=== PATIENT | female | born 1990 | race African-American/Black ===

== ENCOUNTER 2019-06-28 06:19 | Emergency (ER) | payer MEDICAID ==
[~2019-06-28] VITALS: Ht 175.3 cm; Wt 65.8 kg
[~2019-06-28 06:19] MED LIST: CYCLOBENZAPRINE10 MG ORAL; IBUPROFEN600 MG ORAL; PHENAZOPYRIDIN200 MG ORAL
--- NOTE | 2019-06-28 06:31 | NUR ---
ED Nurse Note: pt presents to ED c/o cough, congestion, fever/chills and gernalized body aches that started last PM. pt states that she has been in contact with someone who is positive for influenza but unsure typa A or B. pt reports taking tylenol [employer] without relief of symptoms. she denies getting a flu immunization this year. upon auscultation, pt's lung sound clear
[2019-06-28 06:33] VITALS: BP 100/67
--- NOTE | 2019-06-28 06:48 | Emergency Room Report ---
History of Present Illness General Chief Complaint: Flu Like Symptoms Source: Patient Present Illness HPI 29-year-old female who presents with acute onset flulike symptoms. Patient reports congestion started last night associated with body aches and subjective fevers. Patient states that she had a friend diagnosed with influenza earlier this week. Patient has not tried any medications for symptom control. Patient has no past medical history. Allergies: Coded Allergies: No Known Allergies (Unverified , 09/18/14) Patient History Past Medical History: none Last Menstrual Period: 06/10 Now: No Nursing Documentation-[facility] Past Medical History: No Stated History Review of Systems Constitutional: Reports: fever; Denies: chills ENT: Reports: nose congestion Respiratory: Denies: cough, shortness of breath Cardiovascular: Denies: chest pain, palpitations Gastrointestinal: Denies: diarrhea, vomiting Genitourinary: Denies: hematuria, pain Musculoskeletal: Reports: other; Denies: joint swelling Skin: Denies: rash, lesions Neurological: Denies: headache, dizziness Physical Exam Vital Signs Date Time Temp Pulse Resp B/P (MAP) Pulse Ox O2 Delivery O2 Flow Rate FiO2 06/28/19 06:22 98.8 97 14 100/67 (78) 95 Room Air Sp02 EP Interpretation: reviewed General Appearance: well appearing, no apparent distress, non-toxic Head: normocephalic, atraumatic Eyes: bilateral eye normal inspection ENT: hearing grossly normal, EOM grossly intact, moist mucus membranes Neck: supple Respiratory: normal inspection, lungs clear, normal breath sounds, no rhonchi, no respiratory distress, no retraction, no accessory muscle use, no wheezing, speaking full sentences Cardiovascular #1: regular rate, rhythm, normal capillary refill Cardiovascular #2: 2+ radial (R), 2+ radial (L) Gastrointestinal: non tender, soft, no mass, non-distended Rectal: deferred Musculoskeletal: moves extm spontaneously, no lower extremity edema Neurologic: grossly normal Psychiatric: mood/affect normal Skin: warm/dry, normal turgor Medical Decision Making Diagnostic Impression: Primary Impression: Viral upper respiratory illness ER Course 29-year-old female presents with flulike symptoms found to have no wheezing, rhonchi, rales on exam. Patient afebrile at this time. Will do influenza testing as patient states she was with a friend who had positive flu. Differential includes, influenza, viral illness, pneumonia, Microbiology Date/Time Source Procedure Growth Status 06/28/19 06:36 Nasal Nares - Final Complete 06/28/19 06:36 Nasal Nares - Final Complete Lab Results Impression Negative for influenza Last Vital Signs Date Time Temp Pulse Resp B/P (MAP) Pulse Ox O2 Delivery O2 Flow Rate FiO2 06/28/19 08:00 98.7 98 18 113/73 95 Room Air Reevaluation Impression Patient found to be influenza negative. Patient recommended plenty of rest, hydration, and follow-up with primary care doctor. Discussed hand hygiene and keeping from spreading viral illness. Also discussed return precautions such as cough, fever, respiratory distress or any new symptoms. Disposition: HOME, SELF-CARE Condition: Stable Scripts Pseudoephedrine Hcl* (SUDAFED*) 60 Mg Tablet 60 MG PO Q6H for 7 Days, #30 TAB Prov: Luis F Damon M.D. 06/28/19 Referrals: [facility] Departure Forms: Return to Work Return to Work in (Days): 3 Return to Work Date: Jul 01, 2019 Patient Instructions: Upper Respiratory Infection, Adult Additional Instructions: Please follow-up with primary care doctor or clinic listed in the next 2 to 3 days for reevaluation. Return to emergency room if having any worsening symptoms or new symptoms. Luis F Damon M.D. Jun 28, 2019 06:48
--- NOTE | 2019-06-28 07:07 | NUR ---
HAND-OFF: Report given to KEITH Richards.
--- NOTE | 2019-06-28 07:08 | NUR ---
ED Nurse Note: Received patient from KEITH Candelaria. Patient is sleeping in bed comfortably breathing even and unlabored. no respiratory distress noted at this time.
[2019-06-28] MEDS ORDERED: PSEUDOEPHEDRINE60 MG PO (07:37)
[2019-06-28 08:00] VITALS: BP 113/73
--- NOTE | 2019-06-28 08:00 | NUR ---
ER DISCHARGE NOTE: Patient is cleared to be discharged per ERMJessika Damon , pt is aox4, on room air, with stable vital signs. pt was given dc and prescription instructions, pt was able to verbalize understanding, pt id band removed without complications. pt is able to ambulate with steady gait. pt took all belongings.
== END 2019-06-28 08:00 | disposition home or self-care (01) ==
LOC: EMR 06:40
DX: J06.9 Acute upper respiratory infection, unspecified (principal)
CPT/HCPCS: 86710; Z7502; 99282

== ENCOUNTER → 2019-09-30 | Emergency (ER) | payer MEDICAID ==
[~2019-09-30] VITALS: Ht 177.8 cm; Wt 72.6 kg
[~2019-09-30] MED LIST changes: +CEPHALEXIN500 MG ORAL; +ONDANSETRON ODT4 MG BC; +PSEUDOEPHEDRINE60 MG PO; +TYLENOL EXTRA500 MG ORAL
--- NOTE | 2019-09-30 14:59 | NUR ---
ED Nurse Note: Pt ambulated to ed c/o pulling like pain on lower abdomen x 3 days. pt states she is 4 months . Placed on bed, awaiting for ERPA.
--- NOTE | 2019-09-30 15:16 | Emergency Room Report ---
History of Present Illness General Chief Complaint: Abdominal Pain Source: Patient Present Illness HPI 29-year-old female presents ED for evaluation. Complaining of lower abdominal pain for the last 3 days. Dull, pulling, 3 out of 10, nonradiating. Denies spotting. States she is about 4 months based on LMP. Does not yet have care. Denies fevers or chills. Denies nausea or vomiting. No other aggravating relieving factors. Denies any other associated symptoms Allergies: Coded Allergies: No Known Allergies (Unverified , 09/18/14) Patient History Past Medical History: none Past Surgical History: none Pertinent Family History: none Social History: Denies: smoking, alcohol use, drug use Now: Yes Immunizations: UTD Reviewed Nursing Documentation: PMH: Agreed; PSxH: Agreed Nursing Documentation-PMH Past Medical History: No Stated History Review of Systems All Other Systems: negative except mentioned in HPI Physical Exam Vital Signs Date Time Temp Pulse Resp B/P (MAP) Pulse Ox O2 Delivery O2 Flow Rate FiO2 09/30/19 14:52 98.2 90 16 120/75 (90) 100 Room Air Sp02 EP Interpretation: reviewed, normal General Appearance: no apparent distress, alert, GCS 15, non-toxic Head: normocephalic, atraumatic Eyes: bilateral eye normal inspection, bilateral eye PERRL ENT: hearing grossly normal, normal pharynx, no angioedema, normal voice Neck: full range of motion, supple/symm/no masses Respiratory: chest non-tender, lungs clear, normal breath sounds, speaking full sentences Cardiovascular #1: regular rate, rhythm, no edema Cardiovascular #2: 2+ carotid (R), 2+ carotid (L), 2+ radial (R), 2+ radial (L) , 2+ dorsalis pedis (R), 2+ dorsalis pedis (L) Gastrointestinal: normal bowel sounds, non tender, soft, non-distended, no guarding, no rebound Rectal: deferred Genitourinary: normal inspection, no CVA tenderness Musculoskeletal: back normal, normal range of motion, gait/station normal, non- tender Neurologic: alert, motor strength/tone normal, oriented x3, sensory intact, responsive, speech normal Psychiatric: judgement/insight normal, memory normal, mood/affect normal, no suicidal/homicidal ideation Reflexes: 3+ bicep (R), 3+ bicep (L), 3+ tricep (R), 3+ tricep (L), 3+ knee (R) , 3+ knee (L) Lymphatic: no adenopathy Medical Decision Making Diagnostic Impression: Primary Impression: Threatened Additional Impression: UTI (urinary tract infection) Qualified Codes: N39.0 - Urinary tract infection, site not specified ER Course Hospital Course 29-year-old female presents to ED complaining of lower abdominal pain. + Differential diagnoses include: gastrits, gastroenterits, ectopic , ovarian torsion/cyst, UTI Clinical course Patient placed on stretcher in ED. After initial history and physical I ordered labs, IV fluids and OB US Labs-no leukocytosis, electrolytes okay, beta hCG elevated, UA + bacteria Pelvic ultrasound-IUP detected with heart rate approximately 16 weeks. I discussed findings with patient. Will discharge home with antibiotics. Tylenol, Zofran. Does not yet have a DIRECTOR OF PHILANTHROPY. I will provide referrals. Diagnosis - threatened , UTI Stable and discharged to home with Rx Keflex, zofran, tylenol Followup with PMD /DIRECTOR OF PHILANTHROPY. Return to ED if symptoms recur or worsen Labs Test 09/30/19 15:20 White Blood Count 9.9 K/UL (4.8-10.8) Red Blood Count 3.84 M/UL (4.20-5.40) Hemoglobin 12.4 G/DL (12.0-16.0) Hematocrit 37.2 % (37.0-47.0) Mean Corpuscular Volume 97 FL (80-99) Mean Corpuscular Hemoglobin 32.4 PG (27.0-31.0) Mean Corpuscular Hemoglobin Concent 33.4 G/DL (32.0-36.0) Red Cell Distribution Width 12.3 % (11.6-14.8) Platelet Count 203 K/UL (150-450) Mean Platelet Volume 8.7 FL (6.5-10.1) Neutrophils (%) (Auto) 70.9 % (45.0-75.0) Lymphocytes (%) (Auto) 20.4 % (20.0-45.0) Monocytes (%) (Auto) 6.1 % (1.0-10.0) Eosinophils (%) (Auto) 1.3 % (0.0-3.0) Basophils (%) (Auto) 1.4 % (0.0-2.0) Urine Color Pale yellow Urine Appearance Cloudy Urine pH 7 (4.5-8.0) Urine Specific [place] 1.010 (1.005-1.035) Urine Protein Negative (NEGATIVE) Urine Glucose (UA) Negative (NEGATIVE) Urine Ketones Negative (NEGATIVE) Urine Blood 2+ (NEGATIVE) Urine Nitrite Negative (NEGATIVE) Urine Bilirubin Negative (NEGATIVE) Urine Urobilinogen 1 MG/DL (0.0-1.0) Urine Leukocyte Esterase 2+ (NEGATIVE) Urine RBC 15-20 /HPF (0 - 2) Urine WBC 10-15 /HPF (0 - 2) Urine Squamous Epithelial Cells Many /LPF (NONE/OCC) Urine Amorphous Sediment Few /LPF (NONE) Urine Bacteria Moderate /HPF (NONE) Urine HCG, Qualitative Positive (NEGATIVE) Sodium Level 138 MMOL/L (136-145) Potassium Level 3.4 MMOL/L (3.5-5.1) Chloride Level 104 MMOL/L (98-107) Carbon Dioxide Level 27 MMOL/L (21-32) Anion Gap 7 mmol/L (5-15) Blood Urea Nitrogen 10 mg/dL (7-18) Creatinine 0.5 MG/DL (0.55-1.30) Estimat Glomerular Filtration Rate > 60 mL/min (>60) Glucose Level 81 MG/DL (74-106) Calcium Level 9.0 MG/DL (8.5-10.1) Total Bilirubin < 0.1 MG/DL (0.2-1.0) Aspartate Amino Transf (AST/SGOT) 16 U/L (15-37) Alanine Aminotransferase (ALT/SGPT) 19 U/L (12-78) Alkaline Phosphatase 63 U/L (46-116) Total Protein 6.9 G/DL (6.4-8.2) Albumin 3.1 G/DL (3.4-5.0) Globulin 3.8 g/dL Albumin/Globulin Ratio 0.8 (1.0-2.7) Lipase 120 U/L (73-393) CT/MRI/US Diagnostic Results CT/MRI/US Diagnostic Results : Imaging Test Ordered: OB US Impression Comparison: 08/05/2019 Findings: There is a single live intrauterine . This demonstrates positive heart activity, heart rate 169 bpm. Fetus is active, transverse lie. Placenta is anterior left lateral fundal, clears the internal cervical os. The endocervical canal measures 4.8 cm in length. Grossly normal amniotic fluid volume. measurements as follows: Biparietal diameter 3.6 cm, 17 weeks zero days; head circumference 13 cm, 16 weeks 4 days; abdominal circumference 11 cm, 16 weeks 6 days; femur length 2.2 cm, 16 weeks 5 days. Estimated gestational age by average of ultrasound measurements is 16 weeks 6 days. Estimated date of delivery 2019. This represents appropriate interval growth since prior study Detailed assessment of anatomy not performed, due to early stage of and emergent nature of exam. Grossly normal spine, urinary bladder, insertion of three-vessel cord noted Impression: 16 weeks 6 day, by average of ultrasound measurements, single live intrauterine . No unusual features Last Vital Signs Date Time Temp Pulse Resp B/P (MAP) Pulse Ox O2 Delivery O2 Flow Rate FiO2 09/30/19 14:52 98.2 90 16 120/75 (90) 100 Room Air Status: improved Disposition: HOME, SELF-CARE Condition: Stable Scripts Cephalexin* (KEFLEX*) 500 Mg Capsule 500 MG ORAL EVERY 6 HOURS for 7 Days, CAP Prov: Amos Lim MD 09/30/19 Ondansetron Odt* (ZOFRAN ODT*) 4 Mg Tab.rapdis 4 MG BC EVERY 6 HOURS PRN for Nausea & Vomiting, #10 TAB 0 Refills Prov: Amos Lim MD 09/30/19 Acetaminophen* (TYLENOL EXTRA STRENGTH*) 500 Mg Tablet 500 MG ORAL Q8H PRN for Prn Headache/Temp > 101, #30 TAB 0 Refills Prov: Amos Lim MD 09/30/19 Amos Lim MD Sep 30, 2019 15:16
[2019-09-30 15:28] VITALS: BP 120/75
--- NOTE | 2019-09-30 15:31 | NUR ---
ED Nurse Note: Pt went to US accompanied by tech.
[2019-09-30 15:48] LABS: APPEARANCE,URINE CLOUDY; BILIRUBIN, URINE NEGATIVE (NEGATIVE); COLOR,URINE PALE YELLOW; GLUCOSE, URINE (UA) NEGATIVE (NEGATIVE); KETONES,URINE NEGATIVE (NEGATIVE); LEUKOCYTE ESTERASE ,URINE 2+ (NEGATIVE); NITRITE,URINE NEGATIVE (NEGATIVE); PH,URINE 7 (4.5-8.0); PROTEIN,URINE NEGATIVE (NEGATIVE); UROBILINOGEN,URINE 1 MG/DL (0.0-1.0)
[2019-09-30 16:05] LABS: ANION GAP 7 mmol/L (5-15); BLOOD UREA NITROGEN 10 mg/dL (7-18); CARBON DIOXIDE 27 MMOL/L (21-32); CHLORIDE 104 MMOL/L (98-107); CREATININE 0.5 MG/DL (0.55-1.30); POTASSIUM 3.4 MMOL/L (3.5-5.1); SODIUM 138 MMOL/L (136-145)
--- NOTE | 2019-09-30 16:05 | NUR ---
ED Nurse Note: Pt returned from US on stable condition.
[2019-09-30 16:12] LABS: BASOPHILS % (AUTO) 1.4 % (0.0-2.0); EOSINOPHILS % (AUTO) 1.3 % (0.0-3.0); HEMATOCRIT 37.2 % (37.0-47.0); HEMOGLOBIN 12.4 G/DL (12.0-16.0); LYMPHOCYTES % (AUTO) 20.4 % (20.0-45.0); MEAN CORPUSCULAR VOLUME 97 FL (80-99); MONOCYTES % (AUTO) 6.1 % (1.0-10.0); NEUTROPHILS % (AUTO) 70.9 % (45.0-75.0); PLATELET COUNT 203 K/UL (150-450); RED BLOOD COUNT 3.84 M/UL (4.20-5.40); RED CELL DISTRIBUTION WIDTH 12.3 % (11.6-14.8); WHITE BLOOD COUNT 9.9 K/UL (4.8-10.8)
[2019-09-30 16:14] LABS: ALANINE AMINOTRANSFERASE 19 U/L (12-78); ALBUMIN 3.1 G/DL (3.4-5.0); ALBUMIN/GLOBULIN RATIO 0.8 (1.0-2.7); ALKALINE PHOSPHATASE 63 U/L (46-116); ASPARTATE AMINO TRANSFERASE 16 U/L (15-37); BILIRUBIN,TOTAL < 0.1 MG/DL (0.2-1.0)
--- NOTE | 2019-09-30 16:38 | Diagnostic Imaging Report ---
Indication: Pelvic pain, patient Technique: Grayscale and duplex images of the uterus and fetus. Endovaginal measurement cervix not performed, per patient preference Comparison: 08/05/2019 Findings: There is a single live intrauterine . This demonstrates positive heart activity, heart rate 169 bpm. Fetus is active, transverse lie. Placenta is anterior left lateral fundal, clears the internal cervical os. The endocervical canal measures 4.8 cm in length. Grossly normal amniotic fluid volume. measurements as follows: Biparietal diameter 3.6 cm, 17 weeks zero days; head circumference 13 cm, 16 weeks 4 days; abdominal circumference 11 cm, 16 weeks 6 days; femur length 2.2 cm, 16 weeks 5 days. Estimated gestational age by average of ultrasound measurements is 16 weeks 6 days. Estimated date of delivery 03/10/2020. This represents appropriate interval growth since prior study Detailed assessment of anatomy not performed, due to early stage of and emergent nature of exam. Grossly normal spine, urinary bladder, insertion of three-vessel cord noted Impression: 16 weeks 6 day, by average of ultrasound measurements, single live intrauterine . No unusual features
[2019-09-30 16:54] VITALS: BP 120/75
--- NOTE | 2019-09-30 16:54 | NUR ---
ER DISCHARGE NOTE: Patient is cleared to be discharged per ERMD, pt is aox4, on room air, with stable vital signs. pt was given dc and prescription instructions, pt was able to verbalize understanding, pt id band and iv site removed without complications. pt is able to ambulate with steady gait. pt took all belongings.
== END | disposition home or self-care (01) ==
LOC: EMR 16:38
DX: O20.0 Threatened abortion (principal); Z3A.16 16 weeks gestation of pregnancy; N39.0 Urinary tract infection, site not specified
CPT/HCPCS: 36415; 76805; 76817; 80053; 81003; 81025; 83690; 85025; 87086; Z7502; 99284